=== PATIENT | female | born 1970 ===

== ENCOUNTER 2016-06-11 10:02 | Day surgery (SDC) | payer OTHER ==
[~2016-06-11] VITALS: Ht 157.5 cm; Wt 57.0 kg
[2016-06-11] VITALS (8 sets, daily range): BP systolic 92–107; BP diastolic 44–66; PULSE 69–73; RESP 12–18; O2SAT 96–100
[~2016-06-11 10:02] MED LIST: BACL10TA PO; CITA40TA13 PO; CeFAZolin Inj 2 GM in IV Premix 1 EACH IV ONE; DULO30CA50 PO; HYDR-4003 PO; KEN25CR TP; NICO1PAT16 TRANSDERM
[2016-06-11] MEDS ORDERED: Dexamethasone 4 mg/mL Inj ONE (10:03)
[2016-06-11] MEDS ORDERED: fentaNYL-PF 50 mCg/mL 2 mL Inj ONE (10:03)
[2016-06-11] MEDS ORDERED: Propofol 10,000 mCg/mL 20 mL Inj ONE (10:03)
[2016-06-11] MEDS ORDERED: Ondansetron 2 mg/mL 2 mL Inj ONE (10:03)
[2016-06-11] MEDS: Lactated Ringer's 1,000 ML IV SCH ×2 (10:49→11:42)
[2016-06-11] MEDS ORDERED: Lactated Ringer's 500 ML IV PRN (10:57)
[2016-06-11] MEDS ORDERED: Lactated Ringer's 1,000 ML IV SCH (10:57)
[2016-06-11] MEDS ORDERED: Ondansetron 2 mg/mL 2 mL Inj IVPUSH PRN (11:00)
[2016-06-11] MEDS ORDERED: fentaNYL-PF 50 mCg/mL 2 mL Inj IVPUSH PRN (11:00)
[2016-06-11] MEDS ORDERED: EPHEDrine Sulfate 50 mg/mL Inj IVPUSH PRN (11:00)
[2016-06-11] MEDS ORDERED: HYDROmorphone 1 mg/mL Inj IVPUSH PRN (11:00)
[2016-06-11] MEDS ORDERED: Dexamethasone 4 mg/mL Inj IVPUSH PRN (11:00)
[2016-06-11] MEDS ORDERED: Phenylephrine 10,000 mCg/mL Inj IVPUSH PRN (11:00)
[2016-06-11] MEDS ORDERED: MetoCLOpramide 5 mg/mL 2 mL Inj IVPUSH PRN (11:00)
[2016-06-11] MEDS ORDERED: CeFAZolin Inj 2 gm / 50mL D5W IV ONE (11:11)
[2016-06-11] MEDS ORDERED: Bupivacaine-MPF 0.25%/EPI 30 mL Inj INJ ONE (12:05)
--- NOTE | 2016-06-11 12:08 | PCM.HPANE ---
Patient Data Surgeon Admitting Provider: Attending Provider:Bhavesh Coffman MD Primary Care Physician:Marva Lyons PA-C Other Provider:Irish Jacobingham Anesthesia Reason for Visit Left Cheek Mass Ht/WT & BMI Height (Feet): 5 Height (Inches): 2.00 Weight (Kilograms): 57.000 Body Mass Index 23.00 Allergies Coded Allergies: gabapentin (Verified Allergy, Severe, RASH, 06/10/16) Past Anesthesia History Anesthesia History: Denies:: Anesthesia Reactions, Fam Malignant Hypertherm, Malignant Hyperthermia Diabetes History Hx Diabetes?: No MRSA MRSA: No Medications Home Meds Incl Beta Harshad: No Reported Medications Nicotine 21 mg/24 hr Patch 1 Each Patch.dysq1 Patch TRANSDERM DAILY Ref 0 06/10/16 Hydrocodone-Acetaminophen 5-325 mg 1 Each Tablet1 Tablet PO BID PRN For Pain Ref 0 06/10/16 Duloxetine 30 Mg Capsule.dr90 Mg PO DAILY Ref 0 06/10/16 Citalopram 40 Mg Lostme73 Mg PO DAILY 30 Days Ref 0 06/10/16 Baclofen 10 Mg Tablet5-20 Mg PO QPM Ref 0 06/10/16 Discontinued Reported Medications Triamcinolone Acet (Triamcinolone Acetonide Cream)1 Applic/0.25 Gm Cr1 Applic TP BID #60 GM Ref 0 0.1% 06/10/16 History History of ENT Problems?: Yes Other HEENT Pertinent History: S/P EXC LT CHEEK MASS (CYST) X2 RECURRENT LT CHEEK MASS=CURRENT PROBLEM Cardiovascular History: Denies:: Heart Murmur Hypertension Valvular Heart Disease Hx of Respiratory Problem?: No Respiratory History: Denies:: Use of C-PAP Machine Hx Neurologic Problems?: No Hx of GI Problems?: No Hx of Problems?: No Female Hx: Denies:: Currently Skin History: Denies:: History Skin Disorders? Pressure Ulcers Hx Musculoskeletal Problems?: Yes Musculoskeletal History: Positive for:: Fibromyalgia Hx of Psycho/Social Problems?: Yes Psycho Social History: Positive for:: Hx Depression Hx Surgeries?: Yes (EXC LT CHEEK MASS X2,EXC PILONIDAL CYST) Hx Any Other Health Problems?: Yes Other History: Denies:: Cancer Endocrine Disease Hospitalization Thyroid Disease History Blood Transfusions: Denies:: Blood Transfusions Hx Diabetes: No Have You Smoked inLast 12 mo: Yes (ATTEMPTING TO QUIT) Stop/Bang S-Snoring: Do You Snore Loudly: No T-Tired: feel tired, fatigued: No O-Obsered: Observed not breath: No P-Blood Pressure: treated: No B- Body Mass Index > 35 kg/m2: No A- Age over 50: No N- Neck Large Circumference: No G- Gender Male: No CHET Total Score: 0 Risk Assessment Category Category 1A: Patient has history of documented sleep apnea, and HAS NOT received any narcotic, sedative or anesthesia administration during this stay. Category 1B: Patient has history of documented sleep apnea, and HAS received any narcotic , sedative or anesthesia administration during this stay Category 2: Patient has SUSPECTED Obstructive Sleep Apnea, and HAS received any narcotic , sedative or anesthesia administration during this stay. Category 3: Patient has SUSPECTED Obstructive Sleep Apnea and HAS NOT received narcotic, sedative or anesthesia administration during this stay. Category 4: Outpatient in Procedural Areas with known sleep apnea or who screen positive for High Risk via the STOP/BANG questionnaire. Exam Exam Vital Signs Vital Signs Date Time Temp Pulse Resp B/P Pulse Ox O2 Delivery O2 Flow Rate FiO2 06/11/16 10:31 36.0 69 18 100/57 100 Room Air General Appearance: Alert, Oriented X3, Cooperative HEENT/AIRWAY: MP 2 Lungs: Normal Air Movement Heart: Exam Unremarkable Meds/Labs/Diagnostics Admission Meds Current Medications Lactated Ringer's (Lr) 1,000 ml @ 120 mls/hr Q8H20M IV Last administered on t 10:49; Start 06/11/16 at 05:00; Stop 06/11/16 at 13:19 Plan Impression Patient chart reviewed, patient interviewed and anesthestic plan with risks, benefits, and alternatives discussed, and informed consent obtained. NPO Status: 0800 BL[place]EE ASA Physical Status: ASA2 Mod Systemic Disease Anesthetic Plan: GA Bene/Risks/Altern/Consents: Yes HP Complete Prior to Induction: Yes Collin Wasserman MD Jun 11, 2016 12:08
--- NOTE | 2016-06-11 12:36 | PCM.ANEP1 ---
Post Anesthesia Phase 1 PACU Phase 1 Assessment Vital Signs Vital Signs Date Time Temp Pulse Resp B/P Pulse Ox O2 Delivery O2 Flow Rate FiO2 06/11/16 12:30 36.5 73 13 99/56 96 Room Air 06/11/16 10:31 36.0 69 18 100/57 100 Room Air Anesthetic Administered: GA Level of Alertness: Awake, talking NOEL's with Equal Strength: Yes Pain: No Nausea or Vomiting: No Oxygen Delivery: Room Air Lungs: Normal Air Movement Dermatome Level: Full Sensation Collin Wasserman MD Jun 11, 2016 12:36
--- NOTE | 2016-06-11 12:37 | PCM.ANEP2 ---
Post Anesthesia Evaluation ASA/CMS Post Anesthesia VS in Patient's Normal Range?: Yes Resp Stable; Airway Patent?: Yes CV Function & Hydration Stable: Yes Mental Status Recovered?: Yes Pain control Satisfactory?: Yes N/V Control Satisfactory?: Yes Collin Wasserman MD Jun 11, 2016 12:37
--- NOTE | 2016-06-13 14:10 | PATH ---
SURGICAL PATHOLOGY Attending Physician:Bhavesh Coffman CASE STATUS: Signed Out PATIENT NAME: SHANTAL VASQUEZ PID: [id number] : 1970 DATE COLLECTED:06/11/2016 20:43 SPECIMEN: Skin, Cyst CLINICAL HISTORY: 1). LEFT LOWER CHEEK CYST FINAL DIAGNOSIS: 1.LEFT LOWER CHEEK CYST: BENIGN EPIDERMAL CYST, NEGATIVE FOR ATYPIA. ICD10 CODE L72.0 GROSS DESCRIPTION: The specimen is received in one formalin filled container labeled with the patient's name, sublabeled "left lower cheek cyst" and consists of a 0.7 x 0.7 x 0.9cm [place] portion of skin and tissue. The specimen is inked blue. The specimen is bisected and entirely submitted in one cassette. 06/11/2016 [facility] MICRO DESCRIPTION: See diagnosis. ICD-9 CODES: CPT CODES: 1: 31279 Electronically Signed Out Juan Ramon Karimi MD [facility] [address], [place] [address] Technical component performed at [facility], [facility] [address], [place], [address]
--- NOTE | 2016-06-13 19:27 | OP ---
[address] [address] OPERATIVE REPORT PATIENT: SHANTAL VASQUEZ : 1970 MR#: [id number] ADMIT: 06/11/2016 JOB ID: [id number] DATE OF SURGERY: 06/11/2016 PREOPERATIVE DIAGNOSIS(ES): Left lower cheek oral commissure mass. POSTOPERATIVE DIAGNOSIS(ES): Left oral commissure epidermal inclusion cyst. PROCEDURE: 1. Excision of left lower cheek oral commissure mass 1 cm. 2. Layered closure of left medial cheek defect total length of layered closure. 1.3 cm. SURGEON: Bhavesh Coffman MD ELEVATOR REPAIRER: None. ANESTHESIA: General anesthesia. COMPLICATIONS: None apparent. SPECIMEN: Left lower cheek mass to Pathology. INDICATIONS FOR PROCEDURE: This is a 46-year female patient with a slowly enlarging mass located on her left lower medial cheek at the area of the oral commissure. At this point, excision is indicated for tissue diagnosis. PROCEDURES AND FINDINGS: The patient was identified in the preoperative area and the surgical site was marked. The patient was then taken back to the operating room placed supine on the operating table. Appropriate time-outs were taken. General anesthesia was induced smoothly. The patient was then prepped and draped in the usual sterile manner. It was noted that patient has a 1 cm or so subcutaneous mass located on the left lower medial cheek at the oral commissure. An ellipse was then incised over the central portion of this mass. This was done with a 15 blade. The incision was then deepened down into the subcutaneous tissue were an epidermal inclusion cyst was encountered. I then performed blunt dissection and freed the cyst from the surrounding soft tissue and attachments. It was elevated off of the orbicularis suleman muscle at its base. Hemostasis was obtained with electrocautery. Local anesthesia was then infiltrated into this area consisting of 0.25% Marcaine with epinephrine. The specimen was then passed off to Pathology. The incision was then reapproximated, first with a layer of 5-0 Monocryl deep dermal suture, followed by 5-0 Prolene simple running suture. The mass was 1 cm in diameter. The total length of layered closure was 1.3 cm. The patient tolerated this procedure well. Needle count, sponge count, and instrument counts were correct at the end of the procedure. The patient was extubated and transported to recovery in stable condition.
== END 2016-06-11 23:59 | disposition home or self-care (01) ==
LOC: SAS 10:02
PROVIDERS: ATTEND Plastic Surgery
DX: L72.0 Epidermal cyst (principal); R22.0 Localized swelling, mass and lump, head; F32.9 Major depressive disorder, single episode, unspecified; M79.7 Fibromyalgia; F17.210 Nicotine dependence, cigarettes, uncomplicated
CPT/HCPCS: 11441; 12051; J0690; J1100; J2250; J2405; J3010; J7120